=== PATIENT | female | born 1995 | race Hispanic/Latino ===

== ENCOUNTER 2017-07-29 04:23 | Outpatient (CLI) | payer OTHER ==
[~2017-07-29] VITALS: Ht 162.6 cm; Wt 70.2 kg
[2017-07-29 04:40] VITALS: BP 128/93
[2017-07-29] MEDS ORDERED: PRENTAB9 PO (04:51)
[2017-07-29 07:12] VITALS: BP 129/83
--- NOTE | 2017-07-30 13:15 | HPE ---
DATE OF ADMISSION: 07/29/2017 21-year-old 1, para 0, last menstrual period (LMP) 10/08/2016, estimated date of confinement (EDC) 08/03/2017 at 39 and 2 weeks of gestation, history of contractions. She was saying 2-4 minutes, however, they seem to be stretched out longer than that with moderate variability. Category one strip. Her labs are O+, HIV negative, hep negative, RPR negative. Varicella immune. Had E-coli in her urine. Gonorrhea and chlamydia are negative. 1-hour glucose was 102. GBS negative. On examination, she appears distressed and nervous. Symphysis fundus height is 40, vertex OA, 70% effaced, -3 station, posterior, finger tip with some scant show. Urine is 10/10, pH 7, positive for blood. Temperature 98.2, blood pressure 128/93, respirations 18, pulse is 78. The rest of the examination is unremarkable. She is normocephalic, atraumatic. Neck with full range of motion. Pupils equal and reactive to light. Distal pulses symmetric. No evidence of DVT, PE or superficial phlebitis. Lungs are clear bilaterally to the bases. No wheezes or rhonchi. No CVA tenderness. Appropriate symphysis fundus. Four quadrant bowel sounds are noted. She has no rashes, lesions, pruritus. No arthralgia, myalgia. No complaints of cough, wheezes, shortness of breath or dyspnea on exertion. No chest pain. She is not bleeding. Neuro complete. No urgency, frequency. No nausea, vomiting, diarrhea or constipation. 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 Family history is noncontributory. She does not smoke, drink or abuse drugs. and good support systems and no domestic violence. In summary, we have a patient who is probably uterine irritability or very early term contractions. Plan of management is to hydrate, reassess in an hour and review the strip with precautions and possible discharge.
== END 2017-07-29 08:03 | disposition home or self-care (01) ==
LOC: M LDO 04:23
PROVIDERS: ATTEND Obstetrics & Gynecology
DX: O47.1 False labor at or after 37 completed weeks of gestation (principal); Z3A.39 39 weeks gestation of pregnancy; O62.0 Primary inadequate contractions

== ENCOUNTER 2017-07-31 03:29 | Inpatient (IN) | payer OTHER ==
[~2017-07-31] VITALS: Ht 162.6 cm; Wt 72.7 kg
[~2017-07-31 03:29] MED LIST changes: -ACET50TA PO; -COLA100C5 PO; -DIBU1OIN TOP; -IBUP-1114 PO
[2017-07-31] MEDS ORDERED: LR 1,000 ML IV SCH (03:51)
[2017-07-31] MEDS ORDERED: LACTATED RINGER'S 1000 ML IV STA (03:51)
[2017-07-31 04:01] LABS: MEAN CORPUSCULAR HEMOGLOBIN 32.4 pg (27.0-33.0); MEAN CORPUSCULAR VOLUME 92.5 fl (80.0-96.0); RED CELL DISTRIBUTION WIDTH 12.7 % (11.5-14.5); WHITE BLOOD COUNT 6.2 10^3/uL (4.0-10.0)
--- NOTE | 2017-07-31 04:12 | HPEPDOC ---
Obstetrical History & Physical General Date of Admission Jul 31, 2017 at 03:29 History of Present Illness Nayeli is a 21yo with SIUP at 39w4d presenting with painful ctx since 1700 , states has been hipolito for the last few days. SCE performed by RN in triage, reported /-1 with ROM immediately after, clear fluid around 0330. No vaginal bleeding. Has felt good movement. 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: No pertinent history Past Medical History Medical History headaches, low back pain Surgical History: [place] teeth Family History Significant Family History: No pertinent family hx Social History Marital Status: Family situation: Spouse/partner home Psychosocial History: No pertinent psych hx * Smoker: non-smoker Alcohol: Denies Drugs: denies Imunizations Tdap status: current Influenza Status: current Allergies Coded Allergies: No Known Allergies (Unverified , 07/29/17) Medications Scheduled Multivitamins/ ( 27-0.8 mg) 1 Tab Tab, 1 TAB PO DAILY Physical Examination Physical Examination GENERAL: Alert and oriented times three. BREAST: . ABDOMEN: Gravid and non-tender to touch. FETUS: Is vertex (VTX) by sterile vaginal examination (SVE) per RN EXTREMITIES: trace edema of BLE Laboratory Data [facility] Laboratory Tests 2 07/31/17 03:30: 07/31/17 03:55: Serology Scanned Report Hepatitis B Testing Pertinent Laboratoy Data Blood Type: O+ RBC Antibody Screen: Negative HIV: Negative Hepatitis B: Negative Hepatitis C: Unknown Rapid Plasma Reagin: Nonreactive Rubella: Immune Varicella: Immune Chlamydia/Gonorrhea: Negative Group B Streptococcus: Negative Glucose Tolerance Test: 102 Anatomy Ultrasound Ultrasound Date: Mar 16, 2017 Placenta Location: Anterior Normal Anatomy: Yes Placenta Previa: No Steroid Therapy Steroid Therapy: No Vaginal Examination Dilation: 6 cm Effacement: 90% Station: 0 Cervical Consistency: Soft Cervical Position: Anterior Presentation: Cephalic presentation Assessment Heart Rate (FHR): 140 Variability: Moderate Accelerations: Positive Decelerations: Variable Tocometer Contractions: Yes Frequency: regular, every 2-5 min. Duration: greater than 60 seconds Strength: palpated as strong Assessment/Plan Assessment Nayeli is a 21yo with SIUP at 39w4d in active labor with ROM on initial SCE by RN on presentation, SCE 5/80/-1 changed to 6/90/0 after 30 minutes. Cat II FHRT with variable decels, otherwise mod samir and accels. GBS negative. Cephalic by RN SCE. Plan Admit and orient. Counseled and consented for Diet: clear liquids Group B Streptococcus (GBS) negative Labs and intravenous (IV) per unit protocol. Lactated Ringers (LR): Bolus 1000 mL, then at 125 mL/hr. Patient is on her side with O2 mask. If variable decels do not promptly resolve with IV hydration, discussed with patient placing IUPC for amnio-infusion Anticipate normal spontaneous delivery () C-S as appropriate Candidate for epidural if desired MD Lukasz Cazares Katrina D MD Jul 31, 2017 04:12
[2017-07-31 04:25] LABS: PLATELET COUNT, AUTOMATED 85 10^3/uL (150-450); SUSPECT SAMPLE POS FLAG
[2017-07-31 04:37] LABS: IMMATURE PLATELET FRACTION % 8.6 % (0.0-9.6)
[2017-07-31] MEDS ORDERED: OXYTOCIN 30 UNITS IN 0.9% NaCl 500ML IV BAG (J2590) As Ordered ONE (05:02)
[2017-07-31 06:15] LABS: BASO % 0.5 % (0.0-1.0); EOS % 0.3 % (0.0-3.0); IMMATURE GRANULOCYTE % 0.3 % (0-0); LYMPH # 0.8 10^3/uL (1.5-6.5); LYMPH % 12.4 % (24.0-44.0); MONO # 0.3 10^3/uL (0.0-0.8); MONO % 4.8 % (0.0-5.0); NEUTROPHILS # 4.9 10^3/uL (1.8-7.7); NEUTROPHILS % 81.7 % (36.0-66.0)
[2017-07-31 06:44] LABS: BASO % 0.3 % (0.0-1.0); EOS % 0.2 % (0.0-3.0); IMMATURE GRANULOCYTE % 0.7 % (0-0); LYMPH # 1.4 10^3/uL (1.5-6.5); MEAN CORPUSCULAR HEMOGLOBIN 32.3 pg (27.0-33.0); MEAN CORPUSCULAR HGB CONC 34.5 g/dl (32.0-36.5); MEAN CORPUSCULAR VOLUME 93.8 fl (80.0-96.0); MONO # 0.6 10^3/uL (0.0-0.8); MONO % 4.9 % (0.0-5.0); NEUTROPHILS # 9.6 10^3/uL (1.8-7.7); NEUTROPHILS % 81.9 % (36.0-66.0); PLATELET COUNT, AUTOMATED 145 10^3/uL (150-450); RED CELL DISTRIBUTION WIDTH 12.6 % (11.5-14.5); WHITE BLOOD COUNT 11.7 10^3/uL (4.0-10.0)
[2017-07-31 07:39] VITALS: BP 117/63
[2017-07-31 08:13] VITALS: BP 131/90
[2017-07-31] MEDS: PRENATAL VITAMINS CHEWABLE TABLET PO SCH (09:00)
[2017-07-31] MEDS: DOCUSATE SODIUM 100 MG CAP PO SCH ×2 (09:00→21:16)
[2017-07-31 10:45] VITALS: BP 122/74
[2017-07-31] MEDS ORDERED: OXYTOCIN DRIP 30 UNITS in APPROPRIATE DILUENT 1 EA IV SCH (10:52)
[2017-07-31 11:00] VITALS: BP 138/76
[2017-07-31] MEDS ORDERED: ONDANSETRON 4MG/2ML VIAL (J2405) IV PRN (11:00)
[2017-07-31] MEDS ORDERED: RHOGAM 300 MCG (1500 IU) INJ (J2790) IM SCH (11:00)
[2017-07-31] MEDS ORDERED: ACETAMINOPHEN 500 MG TAB PO PRN (11:00)
[2017-07-31] MEDS ORDERED: IBUPROFEN 800 MG TAB PO PRN (11:00)
[2017-07-31] MEDS ORDERED: MEASLES,MUMPS,RUBELLA VACCINE INJ (MMR-II) (90707) SC SCH (11:00)
[2017-07-31] MEDS ORDERED: DIBUCAINE 1% OINTMENT 30GM TOP PRN (11:00)
[2017-07-31] MEDS ORDERED: PROMETHAZINE 25 MG TAB PO PRN (11:00)
[2017-07-31] MEDS ORDERED: METHYLERGONOVINE MALEATE 0.2 MG/ML VIAL (J2210) IM PRN (11:00)
[2017-07-31 12:33] VITALS: BP 130/74
[2017-07-31 18:00] VITALS: BP 124/71
[2017-08-01 06:00] VITALS: BP 105/59
[2017-08-01] MEDS: DOCUSATE SODIUM 100 MG CAP PO SCH ×2 (09:21→20:12)
[2017-08-01] MEDS: PRENATAL VITAMINS CHEWABLE TABLET PO SCH (09:21)
[2017-08-01 18:00] VITALS: BP 121/68
[2017-08-02 06:00] VITALS: BP 110/71
[2017-08-02] MEDS: DOCUSATE SODIUM 100 MG CAP PO SCH (07:40)
[2017-08-02] MEDS: PRENATAL VITAMINS CHEWABLE TABLET PO SCH (07:40)
[2017-08-02] MEDS ORDERED: ACET50TA PO (09:35)
[2017-08-02] MEDS ORDERED: COLA100C5 PO (09:35)
[2017-08-02] MEDS ORDERED: DIBU1OIN TOP (09:35)
[2017-08-02] MEDS ORDERED: IBUP-1114 PO (09:35)
--- NOTE | 2017-08-04 17:52 | DSES ---
DATE OF ADMISSION: 07/31/2017 DATE OF DISCHARGE: 08/02/2017 21-year-old 1 now para 1 admitted at 39 and 4 weeks of gestation with contractions, delivered a live female infant, 6 pounds 13 ounces, scores of 8 and 9 at 1 and 5 minutes, respectively. On her second day we discussed phlebitis, cystitis, mastitis, endometritis and cellulitis, diet, exercise, pain management, perineal, breast and wound care. Discharge hemoglobin was 13.0, hematocrit 37.7 and platelets were 145. Discharge vital signs: Blood pressure 110/74, respirations 18, pulse 81, temperature 97.4. The rest the examination was unremarkable. She is normocephalic, atraumatic. Neck full range of motion. Pupils equal and reactive to light. Distal pulses are symmetric. No evidence of DVT, PE or superficial phlebitis. Chest is clear bilaterally to the bases. No wheezes or rhonchi. No CVA tenderness. Uterus two below. Lochia is moderate. Four quadrant bowel sounds are noted. No rashes, lesions or pruritus. No arthralgia or myalgia. No complaints of cough, wheeze, shortness of breath or dyspnea on exertion. No chest pain. Not bleeding. Neurologically complete. No incontinency, urgency, or frequency. No nausea, vomiting, diarrhea or constipation. In summary we have a term gestation, delivered a live female infant. Discharged improved. Followup in the office in six weeks' time.
== END 2017-08-02 11:45 | disposition home or self-care (01) | DRG 775 ==
LOC: M LDI 03:29 → M OBS 12:28
PROVIDERS: ADMIT Obstetrics & Gynecology; ATTEND Obstetrics & Gynecology
PROC: 10E0XZZ Delivery of Products of Conception, External Approach (ICD-10-PCS; principal; 2017-07-31)
DX: O80 Encounter for full-term uncomplicated delivery (principal); Z37.0 Single live birth; Z3A.39 39 weeks gestation of pregnancy

== ENCOUNTER → 2017-07-31 | Outpatient (CLI) | payer OTHER ==
[~2017-07-31] MED LIST: ACET50TA PO; COLA100C5 PO; DIBU1OIN TOP; IBUP-1114 PO; PRENTAB9 PO
== END ==
LOC: M LDO 03:10
PROVIDERS: ATTEND Obstetrics & Gynecology
DX: O26.893 Other specified pregnancy related conditions, third trimester (principal); Z3A.39 39 weeks gestation of pregnancy